=== PATIENT | male | born 1990 | race Hispanic/Latino ===

== ENCOUNTER 2017-02-24 09:37 | Emergency (ER) | payer BC, MEDICARE ==
--- NOTE | 2017-02-24 10:15 | Emergency Department Report ---
HPI - General Chief Complaint: Chest Pain Time Seen by Provider: 02/24/17 09:52 - HPI HPI: This is a 26-year-old male presents to the emergency department via EMS from [facility] with complaint of chest and generalized abdominal pain since last night. Starting this morning the patient had some nausea and vomiting. He also complains of a mixed dry and productive cough. He did not take anything and was not given anything for his symptoms prior to presentation. He has a past medical history of seizures. He has a past psychiatric history of schizophrenia for which is the reason he has not ate or hospital currently under a 1013. There is no past surgical history. He has a primary care physician. No recent travel. He denies tobacco or illicit drug use or abuse. The patient's parents are bedside to give more history. The patient has a history of a pulmonary embolism 18 months ago at [facility]. He also has a history of Lyme disease from a tick bite 2 years ago. 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 He is currently on rifampin, azithromycin and minocycline. ED Past Medical Hx - Past Medical History Previous Medical History?: Yes Hx Seizures: Yes Hx Psychiatric Treatment: Yes (schitzophrenia) - Surgical History Past Surgical History?: No - Social History Smoking Status: Never Smoker Substance Use Type: None - Medications Home Medications: Home Medications Medication Instructions Recorded Confirmed Last Taken Type Cromolyn Sodium [Gastrocrom] 5 ml PO TID 02/24/17 02/24/17 Unknown History Cromolyn Sodium [Gastrocrom] 10 ml PO QAM 02/24/17 02/24/17 Unknown History Famotidine [Pepcid] 20 mg PO BID 02/24/17 02/24/17 Unknown History Ibuprofen [Motrin] 400 mg PO TID 02/24/17 02/24/17 Unknown History Thiamine [Vitamin B-1] 100 mg PO QDAY 02/24/17 02/24/17 Unknown History clonazePAM [ Klonopin] 0.5 mg PO QDAY 02/24/17 02/24/17 Unknown History clonazePAM [Klonopin] 1 mg PO BID 02/24/17 02/24/17 Unknown History ED Review of Systems ROS: Stated complaint: CHEST PAIN Other details as noted in HPI Comment: All other systems reviewed and negative Constitutional: denies: chills, fever Eyes: denies: eye pain, eye discharge, vision change ENT: denies: ear pain, throat pain Respiratory: cough, shortness of breath Cardiovascular: chest pain. denies: palpitations Gastrointestinal: abdominal pain, nausea, vomiting Genitourinary: denies: urgency, dysuria Musculoskeletal: denies: back pain, joint swelling, arthralgia Skin: denies: rash, lesions Neurological: denies: headache, weakness, paresthesias Physical Exam - Physical Exam Vital Signs: Vital Signs 02/24/17 02/24/17 02/24/17 09:40 09:41 09:42 Temperature Pulse Rate Respiratory Rate Blood Pressure 117/72 O2 Sat by Pulse 100 99 99 Oximetry 02/24/17 02/24/17 02/24/17 09:43 09:45 09:54 Temperature 98.7 F Pulse Rate 70 67 Respiratory 10 L Rate Blood Pressure 117/72 119/71 O2 Sat by Pulse 99 99 Oximetry Physical Exam: GENERAL: The patient is well-developed well-nourished. HEENT: Normocephalic. Atraumatic. Extraocular motions are intact. Patient has moist mucous membranes. Pupils equal reactive to light bilaterally. NECK: Supple. Trachea is midline. CHEST/LUNGS: Clear to auscultation. There is no respiratory distress noted. HEART/CARDIOVASCULAR: Regular. There is no tachycardia. There is no gallop rub or murmur. ABDOMEN: Abdomen is soft. There is some mild generalized tenderness to palpation of the abdomen. No guarding or rebound tenderness. Patient has normal bowel sounds. There is no abdominal distention. SKIN: Skin is warm and dry. NEURO: The patient is awake, alert, and oriented. The patient is cooperative. The patient has no focal neurologic deficits. The patient has normal speech. MUSCULOSKELETAL: There is no tenderness or deformity. There is no limitation range of motion. There is no evidence of acute injury. ED Course Vital Signs 02/24/17 02/24/17 02/24/17 09:40 09:41 09:42 Temperature Pulse Rate Respiratory Rate Blood Pressure 117/72 O2 Sat by Pulse 100 99 99 Oximetry 02/24/17 02/24/17 02/24/17 09:43 09:45 09:54 Temperature 98.7 F Pulse Rate 70 67 Respiratory 10 L Rate Blood Pressure 117/72 119/71 O2 Sat by Pulse 99 99 Oximetry ED Medical Decision Making - Lab Data Result diagrams: 02/24/17 09:59 02/24/17 09:59 - EKG Data -: EKG Interpreted by Me EKG shows normal: sinus rhythm, axis, intervals, QRS complexes (early repolarization), ST-T waves Rate: normal - EKG Data When compared to previous EKG there are: previous EKG unavailable Interpretation: normal EKG (with early repolarization) - Radiology Data Radiology results: report reviewed, image reviewed interpreted by me: Chest x-ray did not show any acute process. Heart is normal shape and size. No effusions. No pneumothorax. No signs of pneumonia seen. Abdominal x-ray shows nonspecific nonobstructive bowel gas. CT angiography of the chest does not show any pulmonary embolism, dissection or any acute process. CT of the abdomen and pelvis with IV contrast does not show any acute process. - Medical Decision Making 26-year-old male presents with chest pain and shortness of breath and abdominal pain since yesterday with some nausea and vomiting since today. He was evaluated with a physical exam, labs, imaging and EKG. EKG is normal without any signs of ST elevation PA, ischemia or dysrhythmia. Labs and then mostly unremarkable including no signs of infection in the blood or urine, electrolyte abnormalities, renal insufficiency and the patient has had negative troponins 2 and a negative d-dimer. A CT of the abdomen and pelvis with IV contrast was done that did not show any acute process. Despite the negative workup thus far , the patient has a history of unexplained pulmonary embolism from 18 months ago , as well as a history of Lyme disease and questionable previous carditis. For this reason both the patient and his parents were concerned for a recurrence of these conditions and requested further CT imaging. A CT angiography of the chest was done that did not show any pulmonary embolism, pleural effusions, or any inflammatory conditions near or around the heart. The patient received some IV fluid and a dose of pain medication as well as a dose of aspirin. Upon reevaluation he is feeling greatly improved. He has a JETT score of 1 if his pain is considered to be angina and 0 if not. He is low on the heart score criteria. He'll be discharged back to [facility] and encouraged to return to the ER with any worsening of symptoms or any acute distress. - Differential Diagnosis PA, PE, pericarditis, colitis, diverticulitis, gastritis Critical Care Time: No Critical care attestation.: If time is entered above; I have spent that time in minutes in the direct care of this critically ill patient, excluding procedure time. ED Disposition Clinical Impression: Chest pain Qualifiers: Chest pain type: unspecified Qualified Code(s): R07.9 - Chest pain, unspecified Abdominal pain Qualifiers: Abdominal location: generalized Qualified Code(s): R10.84 - Generalized abdominal pain Disposition: TO HOME OR SELFCARE Is pt being admited?: No Condition: Stable Instructions: Chest Pain (ED), Abdominal Pain (ED) Additional Instructions: Please follow-up with your primary care physician once you are done at [facility]. I have given you a referral for a local cannoneer, Dr. Thompson, to follow up regarding your chest pains. Return to the emergency department with any worsening of her symptoms or any acute distress. Referrals: ASHOK THOMPSON MD [Staff Physician] - as needed PRIMARY CARE, [Primary Care Provider] - as needed
[2017-02-24 10:29] LABS: Basophils % (Auto) 0.8 % (0.0-1.8); Eosinophils % (Auto) 2.1 % (0.0-4.3); Hematocrit 42.9 % (35.5-45.6); Mean Corpuscular HGB Conc 35 % (32-34); Mean Corpuscular Hemoglobin 30 pg (28-32); Mean Corpuscular Volume 85 fl (84-94); Platelet Count 183 K/mm3 (140-440); Red Blood Count 5.05 M/mm3 (3.65-5.03); White Blood Count 4.8 K/mm3 (4.5-11.0)
[2017-02-24 10:46] LABS: Anion Gap 17 mmol/L; BUN/Creatinine Ratio 12.85; Blood Urea Nitrogen 9 mg/dL (9-20); Carbon Dioxide 23 mmol/L (22-30); Chloride 104.8 mmol/L (98-107); Glucose 107 mg/dL (75-100); Sodium 141 mmol/L (137-145)
--- NOTE | 2017-02-24 10:51 | XRay Report ---
ABDOMINAL SERIES THREE VIEWS: 02/24/17 09:37:00 CLINICAL: Abdominal pain. FINDINGS: Supine and upright views demonstrate a normal bowel gas pattern with a moderately large volume of stool in the colon. No distended small bowel and no air-fluid levels. No pneumoperitoneum. No mass or suspicious calcifications. The bones and soft tissues are normal.The chest is unremarkable. IMPRESSION: Negative abdomen.
[2017-02-24 11:24] LABS: Alanine Aminotransferase 22 units/L (7-56); Albumin 4.2 g/dL (3.9-5); Albumin/Globulin Ratio 2.3 %; Alkaline Phosphatase 59 units/L (35-129); Lipase 55 units/L (13-60)
[2017-02-24 11:27] LABS: Bilirubin,Direct < 0.2 mg/dL (0-0.2)
[2017-02-24] MEDS ORDERED: BABY ASPIRIN PO ONE (11:27)
[2017-02-24] MEDS ORDERED: NACL ONE (12:02)
[2017-02-24] MEDS ORDERED: MORPHINE IV ONE (12:30)
[2017-02-24] MEDS ORDERED: NACL 0.9% 1000 ML 1,000 ML IV ONE (12:30)
--- NOTE | 2017-02-24 12:51 | Cat Scan Report ---
CT CHEST WITH CONTRAST: 02/24/17 11:56:00 CLINICAL: Chest pain and shortness of breath. History of PE. TECHNIQUE: PE protocol with volumetric acquisition and 1.25 mm scan reconstructions after the uneventful intravenous injection of 100 cc Omnipaque 350. Consent was obtained prior to the administration of contrast. FINDINGS: Satisfactory opacification of the pulmonary arteries and no pulmonary artery thrombus identified. Normal heart and aorta. The lungs are clear. No airspace disease or pleural effusion. Normal thyroid, trachea and esophagus. The upper abdomen is unremarkable. The bones and soft tissues are normal. IMPRESSION: Normal study. No pulmonary embolus.
--- NOTE | 2017-02-24 12:56 | Cat Scan Report ---
CT ABDOMEN AND PELVIS WITH CONTRAST: 02/24/17 CLINICAL: Abdominal pain. COMPARISON: None. TECHNIQUE: Volumetric acquisition and 1.25 millimeter scan reconstructions after the uneventful intravenous injection of 100 cc Omnipaque 300. Consent was obtained prior to the administration of contrast. Oral contrast was also given. FINDINGS: Abdomen: Normal liver, bile ducts and gallbladder. Normal stomach, duodenum, pancreas and spleen. Normal adrenal glands and kidneys. The renal collecting systems and ureters are nondilated. Normal aorta and inferior vena cava. The small bowel is normal.Normal ascending, transverse and descending colon. An appendix is not identified. No mass, lymphadenopathy or ascites.No pneumoperitoneum. Pelvis: Normal urinary bladder.Normal prostate and seminal vesicles. Normal rectum and sigmoid colon. Bone windows demonstrate no bone lesion. IMPRESSION: Normal abdomen and pelvis.
[2017-02-24 15:42] VITALS: BP 128/71
== END 2017-02-24 15:20 | disposition home or self-care (01) ==
LOC: ED 09:37
DX: R10.84 Generalized abdominal pain (principal); R07.9 Chest pain, unspecified; R56.9 Unspecified convulsions; F20.9 Schizophrenia, unspecified; Z88.8 Allergy status to other drugs, medicaments and biological substances
CPT/HCPCS: 36415; 71275; 74022; 74177; 80048; 80074; 83690; 84484; 85025; 85379; 93005; 93010; 96361; 96374; 99285; J2270; J7030; Q9967